=== PATIENT | male | born 1970 | race American Indian/Alaskan Native ===

== ENCOUNTER 2016-09-08 12:24 | Day surgery (SDC) | payer SELFPAY ==
[2016-09-08 13:09] VITALS: BMI 41.9
[2016-09-08] MEDS ORDERED: Propofol 10 mg/ml Inj (20 ML) ONE (13:24)
[2016-09-08] MEDS ORDERED: Lactated Ringer's 500 ML IV ONE (13:25)
[2016-09-08 13:29] VITALS: PULSE 64; TEMP 97.9
[2016-09-08 13:56] VITALS: RESP 11; O2SAT 96
[2016-09-08 14:05] VITALS: BP 125/67
== END 2016-09-08 14:05 | disposition home or self-care (01) ==
LOC: H.ENDO 12:24
PROVIDERS: ATTEND Internal Medicine Gastroenterology
DX: B18.1 Chronic viral hepatitis B without delta-agent (principal); E11.9 Type 2 diabetes mellitus without complications; E66.9 Obesity, unspecified; I42.9 Cardiomyopathy, unspecified; R31.9 Hematuria, unspecified; R10.13 Epigastric pain